=== PATIENT | male | born 1935 | race American Indian/Alaskan Native ===

== ENCOUNTER 2017-10-07 08:05 | Outpatient (CLI) | payer OTHER | END 2017-10-07 08:47 | disposition home or self-care (01) | LOC: SONOGRAMA 08:05 | DX: N20.0 Calculus of kidney (principal); N40.0 Benign prostatic hyperplasia without lower urinary tract symptoms ==

== ENCOUNTER 2017-12-16 08:32 | Outpatient (CLI) | payer OTHER | END 2017-12-16 08:45 | disposition home or self-care (01) | LOC: RAD 501 08:32 | DX: R06.89 Other abnormalities of breathing (principal) ==

== ENCOUNTER 2017-12-16 09:20 | Outpatient (CLI) | payer OTHER | END 2017-12-16 09:30 | disposition home or self-care (01) | LOC: EKG 09:20 | DX: I10 Essential (primary) hypertension (principal) ==

== ENCOUNTER 2018-02-21 09:16 | Outpatient (CLI) | payer OTHER | END 2018-02-21 09:22 | disposition home or self-care (01) | LOC: EKG 09:16 | DX: I10 Essential (primary) hypertension (principal) ==

== ENCOUNTER 2018-03-21 13:20 | Outpatient (CLI) | payer OTHER | END 2018-03-21 15:00 | disposition home or self-care (01) | LOC: SONOGRAMA 13:20 | DX: N40.0 Benign prostatic hyperplasia without lower urinary tract symptoms (principal) ==

== ENCOUNTER 2018-05-24 06:25 | Day surgery (SDC) | payer OTHER ==
[~2018-05-24 06:25] MED LIST: LIPITOR20 MG PO; TAMS0.4C PO
== END 2018-05-24 18:10 | disposition home or self-care (01) ==
LOC: EDBD → CIR.AMB 06:25
DX: K40.91 Unilateral inguinal hernia, without obstruction or gangrene, recurrent (principal)